=== PATIENT | male | born 1990 | race Caucasian/White ===

== ENCOUNTER 2017-01-23 10:07 | Emergency (ER) | payer SELFPAY ==
[2017-01-23] MEDS ORDERED: Amoxicillin/Potassium Clav 875 MG TAB ONE (10:46)
[2017-01-23] MEDS ORDERED: predniSONE 20 MG TAB ONE (10:46)
[2017-01-23] MEDS ORDERED: Ibuprofen 800 MG TAB ONE (10:46)
== END 2017-01-23 11:15 | disposition home or self-care (01) ==
LOC: MADERS 10:07
DX: J20.9 Acute bronchitis, unspecified (principal)
CPT/HCPCS: 99283; J7506; J7620

== ENCOUNTER 2018-09-12 09:10 | Emergency (ER) | payer SELFPAY ==
[2018-09-12 09:29] LABS: Bilirubin Negative (Negative); Blood, Urine Negative (Negative); Clarity Clear (Clear); Glucose, Urine (Dipstick) Negative (Negative); Leukocyte Negative (Negative); Nitrite Negative (Negative); Protein, Urine (Dipstick) Negative (Neg-Trace); Urobilinogen 0.2 mg/dL (0.2-1.0)
[2018-09-12 09:30] LABS: Specific Gravity, Urine 1.002 (1.002-1.036)
[2018-09-12 09:46] LABS: #Basophils 0.1 thou/uL (0.0-0.2); #Eosinphils 0.2 thou/uL (0.0-0.7); #Monocytes 0.4 thou/uL (0.11-0.59); #Neutrophils 4.5 thou/uL (1.40-6.50); %Basophils 1.1 % (0.0-1.0); %Eosinophils 2.6 % (0.0-10.0); %Lymphocytes 27.6 % (21.0-51.0); %Neutrophils 62.7 % (42.0-75.0); Hemoglobin 16.6 g/dL (14.0-18.0); Mean Corpuscular HGB CONC 33.8 g/dL (32.0-36.0); Mean Corpuscular Hemoglobin 28.6 pg (27.0-31.0); Mean Corpuscular Volume 84.7 fL (78.0-98.0); Mean Platelet Volume 8.6 fL (7.4-10.4); Platelet Count 350 thou/uL (130-400); RBC Distribution Width 11.6 % (11.5-14.5); Red Blood Cell (RBC) Count 5.81 mill/uL (4.70-6.10); White Blood Cell (WBC) Count 7.2 thou/uL (4.8-10.8)
[2018-09-12 10:01] LABS: ALT (SGPT) 71 U/L (8-55); AST (SGOT) 95 U/L (5-34); Alkaline Phosphatase 76 U/L (40-150); Anion Gap 15 mmol/L (10-20); BUN (Urea Nitrogen) 16 mg/dL (8.9-20.6); Bilirubin, Total 0.7 mg/dL (0.2-1.2); Calc. Creatinine Clearance 0 mL/min (70-130); Calcium 10.6 mg/dL (7.8-10.44); Carbon Dioxide 27 mmol/L (22-29); Chloride 103 mmol/L (98-107); Estimated GFR-MDRD 90; Globulin 3.4 g/dL (2.4-3.5); Glucose 88 mg/dL (70-105); Lipase 44 U/L (8-78); Potassium 4.8 mmol/L (3.5-5.1); Protein, Total 8.4 g/dL (6.0-8.3); Sodium 140 mmol/L (136-145)
--- NOTE | 2018-09-12 10:24 | CT ---
CT ABDOMEN AND PELVIS WITHOUT IV CONTRAST: Date: 09/12/18 Multiple axial tomograms obtained through the abdomen and pelvis without IV enhancement. INDICATION: Abdominal pain. FINDINGS: Lung bases appear clear. Liver, spleen, and pancreas appear unremarkable for an unenhanced exam. Adrenal glands appear normal. Kidneys unremarkable. No hydronephrosis or urinary tract calculus ident ified. Urinary bladder unremarkable. Small bowel loops normal caliber. The appendix is not identified. Colon is mostly nondistended and ap pears unremarkable. No adenopathy. IMPRESSION: No evidence of acute process identified. POS: H
== END 2018-09-12 10:59 | disposition home or self-care (01) ==
LOC: MADERS 09:10
DX: R10.9 Unspecified abdominal pain (principal); E78.2 Mixed hyperlipidemia; I10 Essential (primary) hypertension; Z87.891 Personal history of nicotine dependence
CPT/HCPCS: 36415; 74176; 80053; 81003; 83690; 85025

== ENCOUNTER 2018-12-04 12:10 | Emergency (ER) | payer SELFPAY ==
[2018-12-04] MEDS ORDERED: Dexamethasone 10 MG/ML VIAL ONE (13:01)
[2018-12-04] MEDS ORDERED: Bicillin LA 1.2 MILLION UNITS/2 ML SYRINGE ONE (13:01)
== END 2018-12-04 13:20 | disposition home or self-care (01) ==
LOC: MADERS 12:10
DX: J02.0 Streptococcal pharyngitis (principal); E78.2 Mixed hyperlipidemia; I10 Essential (primary) hypertension; Z87.891 Personal history of nicotine dependence
CPT/HCPCS: 96372; J0561; J1100

== ENCOUNTER 2019-08-22 15:13 | Emergency (ER) | payer OTHER, SELFPAY ==
--- NOTE | 2019-08-22 15:51 | RAD ---
Right wrist 4 views HISTORY: Wrist injury. FINDINGS: Scaphoid waist and ulnar styloid are intact. Joint spaces preserved. No acute fracture or d islocation. No radiopaque foreign bodies evident. IMPRESSION: No acute osseous abnormalities are demonstrated.
== END 2019-08-22 16:06 | disposition home or self-care (01) ==
LOC: MADERS 15:13
DX: S63.501A Unspecified sprain of right wrist, initial encounter (principal); E78.5 Hyperlipidemia, unspecified; E78.2 Mixed hyperlipidemia; W23.0XXA Caught, crushed, jammed, or pinched between moving objects, initial encounter

== ENCOUNTER 2019-10-19 19:09 | Emergency (ER) | payer SELFPAY ==
[2019-10-19] MEDS ORDERED: Morphine 4 MG/ML VIAL ONE (19:45)
[2019-10-19 20:26] LABS: Bilirubin Negative (Negative); Blood, Urine Negative (Negative); Clarity Clear (Clear); Glucose, Urine (Dipstick) Negative (Negative); Leukocyte Negative (Negative); Nitrite Negative (Negative); Protein, Urine (Dipstick) Negative (Neg-Trace); Urobilinogen 0.2 mg/dL (Less than 2)
== END 2019-10-19 20:28 | disposition short-term general hospital (02) ==
LOC: MADERS 19:09
DX: N50.811 Right testicular pain (principal); E78.5 Hyperlipidemia, unspecified; E78.00 Pure hypercholesterolemia, unspecified; E78.1 Pure hyperglyceridemia; Z87.891 Personal history of nicotine dependence
CPT/HCPCS: 81003; 96372; 99284; J2270

== ENCOUNTER 2020-12-14 16:04 | Emergency (ER) | payer SELFPAY ==
[~2020-12-14 16:04] MED LIST: Sodium Chloride 0.9% 1,000 ML BAG ONE
[2020-12-14 16:33] LABS: #Basophils 0.1 thou/uL (0.0-0.2); #Eosinphils 0.2 thou/uL (0.0-0.7); #Lymphocytes 2.2 thou/uL (1.20-3.40); #Monocytes 0.7 thou/uL (0.11-0.59); #Neutrophils 9.2 thou/uL (1.40-6.50); %Basophils 0.9 % (0.0-1.0); %Eosinophils 1.4 % (0.0-10.0); %Lymphocytes 17.9 % (21.0-51.0); %Monocytes 5.6 % (0.0-10.0); %Neutrophils 74.1 % (42.0-75.0); Hemoglobin 16.6 g/dL (14.0-18.0); Mean Corpuscular HGB CONC 33.2 g/dL (32.0-36.0); Mean Corpuscular Hemoglobin 28.3 pg (27.0-31.0); Mean Corpuscular Volume 85.4 fL (78.0-98.0); Mean Platelet Volume 7.8 fL (7.4-10.4); Platelet Count 314 thou/uL (130-400); RBC Distribution Width 11.5 % (11.5-14.5); Red Blood Cell (RBC) Count 5.88 mill/uL (4.70-6.10); White Blood Cell (WBC) Count 12.4 thou/uL (4.8-10.8)
[2020-12-14] MEDS ORDERED: Ondansetron PF 4 MG/2 ML Vial ONE (16:35)
[2020-12-14] MEDS ORDERED: Lorazepam 2 MG/ML VIAL ONE (16:39)
[2020-12-14 16:43] LABS: INR-International Normal Ratio 0.9; PTT 28.6 sec (22.9-36.1); Prothrombin Time 12.5 sec (12.0-14.7)
[2020-12-14 16:54] LABS: ALT (SGPT) 15 U/L (8-55); AST (SGOT) 11 U/L (5-34); Albumin 4.8 g/dL (3.5-5.0); Alkaline Phosphatase 71 U/L (40-110); Anion Gap 20 mmol/L (10-20); BUN (Urea Nitrogen) 6 mg/dL (8.9-20.6); Bilirubin, Total 1.2 mg/dL (0.2-1.2); CK (CPK) 47 U/L (30-200); Calc. Creatinine Clearance 0 mL/min (70-130); Calcium 9.9 mg/dL (7.8-10.44); Carbon Dioxide 26 mmol/L (22-29); Chloride 99 mmol/L (98-107); Globulin 3.6 g/dL (2.4-3.5); Glucose 113 mg/dL (70-105); Potassium 3.8 mmol/L (3.5-5.1); Protein, Total 8.4 g/dL (6.0-8.3); Sodium 141 mmol/L (136-145)
[2020-12-14] MEDS ORDERED: Sodium Chloride 0.9% 100 ML ONE (16:54)
[2020-12-14] MEDS ORDERED: cefTRIAXone\\ROCEPHIN 1 GM VIAL ONE (16:54)
== END 2020-12-14 17:15 | disposition short-term general hospital (02) ==
LOC: MADERS 16:04
DX: J95.830 Postprocedural hemorrhage of a respiratory system organ or structure following a respiratory system procedure (principal); R00.0 Tachycardia, unspecified; E78.5 Hyperlipidemia, unspecified; E78.00 Pure hypercholesterolemia, unspecified; E78.1 Pure hyperglyceridemia; Z87.891 Personal history of nicotine dependence
CPT/HCPCS: 80053; 82550; 85025; 85610; 85730; 86850; 86900; 86901; 94760; 96365; 96375; J0696; J2060; J2405; J3490; J7050

== ENCOUNTER 2021-08-08 18:21 | Emergency (ER) | payer SELFPAY ==
[2021-08-08] MEDS ORDERED: Boostrix 0.5 ML (Tdap) VIAL ONE (19:05)
== END 2021-08-08 19:20 | disposition home or self-care (01) ==
LOC: MADERS 18:21
DX: S61.011A Laceration without foreign body of right thumb without damage to nail, initial encounter (principal); Z23 Encounter for immunization; E78.5 Hyperlipidemia, unspecified; E78.00 Pure hypercholesterolemia, unspecified; E78.1 Pure hyperglyceridemia; Z87.891 Personal history of nicotine dependence; W26.8XXA Contact with other sharp object(s), not elsewhere classified, initial encounter
CPT/HCPCS: 12001; 90471; 90715

== ENCOUNTER 2021-10-22 23:37 | Emergency (ER) | payer BC ==
[2021-10-22] MEDS ORDERED: Iopamidol 370 76% 100 ML VIAL IV ONE (23:38)
[2021-10-22 23:59] LABS: #Basophils 0.1 thou/uL (0.0-0.2); #Eosinphils 0.2 thou/uL (0.0-0.7); #Lymphocytes 3.7 thou/uL (1.20-3.40); #Monocytes 0.6 thou/uL (0.11-0.59); #Neutrophils 2.9 thou/uL (1.40-6.50); %Basophils 1.2 % (0.0-1.0); %Eosinophils 2.9 % (0.0-10.0); %Lymphocytes 49.4 % (21.0-51.0); %Monocytes 7.4 % (0.0-10.0); %Neutrophils 39.1 % (42.0-75.0); Hemoglobin 16.6 g/dL (14.0-18.0); Mean Corpuscular HGB CONC 31.8 g/dL (32.0-36.0); Mean Corpuscular Hemoglobin 27.9 pg (27.0-31.0); Mean Corpuscular Volume 87.5 fL (78.0-98.0); Mean Platelet Volume 8.3 fL (7.4-10.4); Platelet Count 337 thou/uL (130-400); RBC Distribution Width 12.2 % (11.5-14.5); Red Blood Cell (RBC) Count 5.98 mill/uL (4.70-6.10); White Blood Cell (WBC) Count 7.4 thou/uL (4.8-10.8)
[2021-10-23 00:23] LABS: ALT (SGPT) 20 U/L (8-55); AST (SGOT) 20 U/L (5-34); Albumin 4.9 g/dL (3.5-5.0); Alkaline Phosphatase 71 U/L (40-110); Anion Gap 15 mmol/L (10-20); BUN (Urea Nitrogen) 8 mg/dL (8.9-20.6); Bilirubin, Total 0.5 mg/dL (0.2-1.2); Calc. Creatinine Clearance 0 mL/min (70-130); Calcium 10.2 mg/dL (7.8-10.44); Carbon Dioxide 29 mmol/L (22-29); Chloride 102 mmol/L (98-107); Globulin 3.1 g/dL (2.4-3.5); Glucose 91 mg/dL (70-105); Potassium 4.7 mmol/L (3.5-5.1); Sodium 141 mmol/L (136-145)
[2021-10-23 00:39] LABS: Bilirubin Negative (Negative); Blood, Urine Negative (Negative); Clarity Clear (Clear); Glucose, Urine (Dipstick) Negative (Negative); Ketone, Urine Negative (Negative); Leukocyte Negative (Negative); Nitrite Negative (Negative); Protein, Urine (Dipstick) Negative (Neg-Trace); Urobilinogen 0.2 mg/dL (Less than 2)
== END 2021-10-23 02:18 | disposition home or self-care (01) ==
LOC: MADERS 23:37
DX: K56.7 Ileus, unspecified (principal); E78.5 Hyperlipidemia, unspecified; E78.00 Pure hypercholesterolemia, unspecified; Z87.891 Personal history of nicotine dependence
CPT/HCPCS: 36415; 74177; 80053; 81003; 85025; Q9967

== ENCOUNTER 2021-11-22 22:46 | Emergency (ER) | payer BC ==
[2021-11-22 23:52] LABS: #Basophils 0.1 thou/uL (0.0-0.2); #Eosinphils 0.2 thou/uL (0.0-0.7); #Lymphocytes 2.8 thou/uL (1.20-3.40); #Monocytes 0.5 thou/uL (0.11-0.59); #Neutrophils 3.8 thou/uL (1.40-6.50); %Basophils 1.4 % (0.0-1.0); %Eosinophils 2.7 % (0.0-10.0); %Lymphocytes 38.1 % (21.0-51.0); %Monocytes 7.2 % (0.0-10.0); %Neutrophils 50.6 % (42.0-75.0); Mean Corpuscular HGB CONC 32.8 g/dL (32.0-36.0); Mean Corpuscular Hemoglobin 28.3 pg (27.0-31.0); Mean Corpuscular Volume 86.4 fL (78.0-98.0); Mean Platelet Volume 7.5 fL (7.4-10.4); Platelet Count 338 thou/uL (130-400); RBC Distribution Width 11.8 % (11.5-14.5); Red Blood Cell (RBC) Count 5.66 mill/uL (4.70-6.10); White Blood Cell (WBC) Count 7.4 thou/uL (4.8-10.8)
[2021-11-23 00:11] LABS: ALT (SGPT) 20 U/L (8-55); AST (SGOT) 18 U/L (5-34); Albumin 4.7 g/dL (3.5-5.0); Alkaline Phosphatase 58 U/L (40-110); Anion Gap 15 mmol/L (10-20); BUN (Urea Nitrogen) 19 mg/dL (8.9-20.6); Bilirubin, Total 0.5 mg/dL (0.2-1.2); Calc. Creatinine Clearance 0 mL/min (70-130); Calcium 10.2 mg/dL (7.8-10.44); Carbon Dioxide 26 mmol/L (22-29); Chloride 103 mmol/L (98-107); Globulin 2.9 g/dL (2.4-3.5); Glucose 97 mg/dL (70-105); Potassium 3.5 mmol/L (3.5-5.1); Protein, Total 7.6 g/dL (6.0-8.3); Sodium 140 mmol/L (136-145)
== END 2021-11-23 00:32 | disposition home or self-care (01) ==
LOC: MADERS 22:46
DX: K59.00 Constipation, unspecified (principal); K62.5 Hemorrhage of anus and rectum; E78.5 Hyperlipidemia, unspecified; E78.00 Pure hypercholesterolemia, unspecified; Z87.891 Personal history of nicotine dependence
CPT/HCPCS: 80053; 85025; 99283

== ENCOUNTER 2022-01-15 11:32 | Outpatient (CLI) | payer BC | END 2022-01-15 11:33 | disposition home or self-care (01) | LOC: MADLAB 11:32 → MADRAD 11:33 | PROVIDERS: ATTEND Physician Assistant | DX: R07.89 Other chest pain (principal); R05.9 Cough, unspecified | CPT/HCPCS: 71046 ==

== ENCOUNTER 2022-06-22 14:06 | Emergency (ER) | payer BC ==
[2022-06-22] MEDS ORDERED: Aspirin Chewable 81 MG TAB ONE (14:53)
[2022-06-22] MEDS ORDERED: Mag-Al Plus 1200 MG/1200 MG/120 MG/30 ML UDCUP ONE (14:53)
[2022-06-22] MEDS ORDERED: Nitroglycerin 2% Ointment 1 INCH/1 GM Packet ONE (14:53)
[2022-06-22] MEDS ORDERED: Lidocaine Viscous Sol 2% 15 ml UD Cup ONE (14:53)
[2022-06-22 14:56] LABS: #Basophils 0.1 thou/uL (0.0-0.2); #Eosinphils 0.1 thou/uL (0.0-0.7); #Lymphocytes 1.8 thou/uL (1.20-3.40); #Monocytes 0.4 thou/uL (0.11-0.59); #Neutrophils 4.6 thou/uL (1.40-6.50); %Eosinophils 1.5 % (0.0-10.0); %Lymphocytes 25.6 % (21.0-51.0); %Monocytes 6.1 % (0.0-10.0); %Neutrophils 65.9 % (42.0-75.0); Hemoglobin 15.7 g/dL (14.0-18.0); Mean Corpuscular HGB CONC 32.1 g/dL (32.0-36.0); Mean Corpuscular Hemoglobin 27.9 pg (27.0-31.0); Mean Corpuscular Volume 86.8 fL (78.0-98.0); Mean Platelet Volume 9.3 fL (7.4-10.4); Platelet Count 303 thou/uL (130-400); RBC Distribution Width 12.3 % (11.5-14.5); Red Blood Cell (RBC) Count 5.61 mill/uL (4.70-6.10); White Blood Cell (WBC) Count 6.9 thou/uL (4.8-10.8)
[2022-06-22 14:58] LABS: Bilirubin Negative (Negative); Blood, Urine Negative (Negative); Clarity Clear (Clear); Glucose, Urine (Dipstick) Negative (Negative); Ketone, Urine Negative (Negative); Leukocyte Negative (Negative); Nitrite Negative (Negative); Protein, Urine (Dipstick) Negative (Neg-Trace); Urobilinogen 0.2 mg/dL (Less than 2)
[2022-06-22 14:59] LABS: Specific Gravity, Urine 1.005 (1.002-1.036)
[2022-06-22 15:04] LABS: ALT (SGPT) 24 U/L (8-55); AST (SGOT) 17 U/L (5-34); Albumin 4.8 g/dL (3.5-5.0); Alkaline Phosphatase 56 U/L (40-110); Anion Gap 16 mmol/L (10-20); BUN (Urea Nitrogen) 14 mg/dL (8.9-20.6); CK (CPK) 156 U/L (30-200); Calc. Creatinine Clearance 0 mL/min (70-130); Calcium 9.5 mg/dL (7.8-10.44); Carbon Dioxide 25 mmol/L (22-29); Chloride 102 mmol/L (98-107); Estimated GFR 117; Globulin 2.5 g/dL (2.4-3.5); Glucose 95 mg/dL (70-105); Lipase 53 U/L (8-78); Potassium 3.9 mmol/L (3.5-5.1); Protein, Total 7.3 g/dL (6.0-8.3); Sodium 139 mmol/L (136-145)
[2022-06-22 15:51] LABS: SARS-CoV-2 NAA Rapid Test Not Detected (NotDetected)
== END 2022-06-22 15:56 | disposition home or self-care (01) ==
LOC: MADERS 14:06
DX: R07.89 Other chest pain (principal); R53.83 Other fatigue; M79.10 Myalgia, unspecified site; E78.2 Mixed hyperlipidemia; Z20.822 Contact with and (suspected) exposure to COVID-19; Z87.891 Personal history of nicotine dependence
CPT/HCPCS: 71045; 80053; 81003; 82550; 83690; 84484; 85025; 93005; 94760; U0002

== ENCOUNTER 2023-08-27 20:03 | Emergency (ER) | payer BC ==
[~2023-08-27 20:03] MED LIST changes: -Sodium Chloride 0.9% 1,000 ML BAG ONE; +Sodium Chloride 0.9% 100 ML BAG ONE
[2023-08-27] MEDS ORDERED: Bupivacaine PF 0.5% 30 ML VIAL ONE (20:17)
[2023-08-27] MEDS ORDERED: CEFAZOLIN 1 GM VIAL ONE (20:27)
[2023-08-27] MEDS ORDERED: Bacitracin 1 PK ONE (23:08)
[2023-08-27] MEDS ORDERED: HYDROcodone/Acetaminophen 10/325 mg Tablet ONE (23:58)
== END 2023-08-28 00:13 | disposition home or self-care (01) ==
LOC: MADERS 20:03
DX: S62.633B Displaced fracture of distal phalanx of left middle finger, initial encounter for open fracture (principal); S62.631B Displaced fracture of distal phalanx of left index finger, initial encounter for open fracture; E78.2 Mixed hyperlipidemia; Z87.891 Personal history of nicotine dependence; W27.0XXA Contact with workbench tool, initial encounter
CPT/HCPCS: J0690; J3490; S0020

== ENCOUNTER 2023-08-29 18:25 | Emergency (ER) | payer BC | END 2023-08-29 18:45 | disposition home or self-care (01) | LOC: MADERS 18:25 | DX: S61.313D Laceration without foreign body of left middle finger with damage to nail, subsequent encounter (principal); E78.2 Mixed hyperlipidemia; Z87.891 Personal history of nicotine dependence; X58.XXXD Exposure to other specified factors, subsequent encounter | CPT/HCPCS: 99282 ==

== ENCOUNTER 2023-09-07 20:53 | Emergency (ER) | payer BC ==
[~2023-09-07 20:53] MED LIST changes: -Sodium Chloride 0.9% 100 ML BAG ONE; +Sodium Chloride 0.9% 500 ML BAG ONE
[2023-09-07 21:22] LABS: #Basophils 0.2 thou/uL (0.0-0.2); #Eosinphils 0.2 thou/uL (0.0-0.7); #Lymphocytes 3.3 thou/uL (1.20-3.40); #Monocytes 0.5 thou/uL (0.11-0.59); #Neutrophils 2.9 thou/uL (1.40-6.50); %Basophils 2.2 % (0.0-1.0); %Eosinophils 2.8 % (0.0-10.0); %Lymphocytes 47.2 % (21.0-51.0); %Monocytes 6.5 % (0.0-10.0); %Neutrophils 41.3 % (42.0-75.0); Hematocrit 46.3 % (42.0-52.0); Hemoglobin 15.2 g/dL (14.0-18.0); Mean Corpuscular HGB CONC 32.9 g/dL (32.0-36.0); Mean Corpuscular Hemoglobin 28.7 pg (27.0-31.0); Mean Corpuscular Volume 87.4 fl (78.0-98.0); Mean Platelet Volume 8.3 fL (7.4-10.4); Platelet Count 305 10x3/uL (130-400); RBC Distribution Width 12.1 % (11.5-14.5)
[2023-09-07 21:37] LABS: Acetaminophen Less than 10 mcg/mL (10.0-30.0); Alcohol Less than 10.0 mg/dL (Less than 10); Magnesium 1.8 mg/dL (1.6-2.6); Salicylate Less than 8.0 mg/dL (15.0-30.0)
[2023-09-07 21:39] LABS: ALT (SGPT) 28 U/L (8-55); AST (SGOT) 21 U/L (5-34); Albumin 4.6 g/dL (3.5-5.0); Alkaline Phosphatase 46 U/L (40-110); Anion Gap 17 mmol/L (10-20); BUN (Urea Nitrogen) 12 mg/dL (8.9-20.6); Bilirubin, Total 0.3 mg/dL (0.2-1.2); Calc. Creatinine Clearance 0 mL/min (70-130); Calcium 9.8 mg/dL (7.8-10.44); Carbon Dioxide 24 mmol/L (22-29); Chloride 103 mmol/L (98-107); Estimated GFR 104; Globulin 2.7 g/dL (2.4-3.5); Glucose 118 mg/dL (70-105); Protein, Total 7.3 g/dL (6.0-8.3); Sodium 140 mmol/L (136-145)
[2023-09-07 21:41] LABS: Troponin I Less than 0.010 ng/mL (< 0.028)
[2023-09-07 22:07] LABS: Amphetamine Not Detected (NotDetected); Barbiturates Screen Not Detected (NotDetected); Benzodiazepine Screen Not Detected (NotDetected); Cocaine Metabolite Screen Not Detected (NotDetected); Methadone Not Detected (NotDetected); Methamphetamine Not Detected (NotDetected); Opiate Screen Not Detected (NotDetected); Oxycodone Screen Not Detected (NotDetected); Phencyclidine (PCP) Not Detected (NotDetected); THC/Cannabinoid Screen Not Detected (NotDetected); Tricyclic Screen Not Detected (NotDetected)
[2023-09-08 00:19] LABS: Troponin I Less than 0.010 ng/mL (< 0.028)
== END 2023-09-08 00:40 | disposition home or self-care (01) ==
LOC: MADERS 20:53
DX: F41.0 Panic disorder [episodic paroxysmal anxiety] (principal); Z87.891 Personal history of nicotine dependence; Z79.899 Other long term (current) drug therapy
CPT/HCPCS: 71045; 80053; 80306; 80307; 82550; 83735; 83880; 84484; 85025; 93005; J7030

== ENCOUNTER 2024-08-05 11:49 | Outpatient (CLI) | payer BC | END 2024-08-05 11:50 | disposition home or self-care (01) | LOC: MADRAD 11:49 | PROVIDERS: ATTEND Family Medicine | DX: U07.1 COVID-19 (principal) | CPT/HCPCS: 71046 ==

== ENCOUNTER 2024-10-09 20:09 | Emergency (ER) | payer BC ==
[2024-10-09] MEDS ORDERED: Ondansetron ODT 4 MG TAB ONE (20:22)
[2024-10-09 20:30] LABS: #Basophils 0.1 thou/uL (0.0-0.2); #Eosinophils 0.3 thou/uL (0.0-0.7); #Lymphocytes 3.1 thou/uL (1.20-3.40); #Monocytes 0.4 thou/uL (0.11-0.59); #Neutrophils 2.7 thou/uL (1.40-6.50); %Basophils 1.9 % (0.0-1.0); %Eosinophils 3.9 % (0.0-10.0); %Monocytes 6.5 % (0.0-10.0); %Neutrophils 40.7 % (42.0-75.0); Hematocrit 46.3 % (42.0-52.0); Hemoglobin 15.3 g/dL (14.0-18.0); Mean Corpuscular HGB CONC 33.1 g/dL (32.0-36.0); Mean Corpuscular Hemoglobin 28.9 pg (27.0-31.0); Mean Corpuscular Volume 87.2 fl (78.0-98.0); Mean Platelet Volume 9.2 fL (7.4-10.4); Platelet Count 289 10x3/uL (130-400); RBC Distribution Width 12.3 % (11.5-14.5); Red Blood Cell (RBC) Count 5.31 mill/uL (4.70-6.10); White Blood Cell (WBC) Count 6.5 10x3/uL (4.8-10.8)
[2024-10-09 20:46] LABS: ALT (SGPT) 37 U/L (8-55); AST (SGOT) 25 U/L (5-34); Albumin 4.4 g/dL (3.5-5.0); Alkaline Phosphatase 49 U/L (40-110); Anion Gap 17 mmol/L (10-20); BUN (Urea Nitrogen) 17 mg/dL (8.9-20.6); Bilirubin, Total 0.3 mg/dL (0.2-1.2); Calc. Creatinine Clearance 0 mL/min (70-130); Calcium 9.4 mg/dL (7.8-10.44); Carbon Dioxide 24 mmol/L (22-29); Chloride 105 mmol/L (98-107); Estimated GFR 107; Globulin 3.1 g/dL (2.4-3.5); Glucose 100 mg/dL (70-105); Potassium 3.9 mmol/L (3.5-5.1); Protein, Total 7.5 g/dL (6.0-8.3); Sodium 142 mmol/L (136-145)
[2024-10-09 20:48] LABS: Troponin I Less than 0.010 ng/mL (< 0.028)
== END 2024-10-09 21:05 | disposition home or self-care (01) ==
LOC: MADERS 20:09
DX: R07.9 Chest pain, unspecified (principal); R42 Dizziness and giddiness; Z71.1 Person with feared health complaint in whom no diagnosis is made; Z87.891 Personal history of nicotine dependence
CPT/HCPCS: 36416; 80053; 84484; 85025; 93005; 99284; 36415-59; Q0162

== ENCOUNTER 2025-08-13 11:00 | Emergency (ER) | payer BC, SELFPAY ==
[2025-08-13 11:45] LABS: #Basophils 0.1 thou/uL (0.0-0.2); #Eosinophils 0.1 thou/uL (0.0-0.7); #Lymphocytes 1.6 thou/uL (1.20-3.40); #Monocytes 0.4 thou/uL (0.11-0.59); #Neutrophils 4.2 thou/uL (1.40-6.50); %Basophils 1.6 % (0.0-1.0); %Eosinophils 1.5 % (0.0-10.0); %Lymphocytes 25.1 % (21.0-51.0); %Monocytes 6.7 % (0.0-10.0); %Neutrophils 65.2 % (42.0-75.0); Hematocrit 49.2 % (42.0-52.0); Hemoglobin 15.9 g/dL (14.0-18.0); Mean Corpuscular Hemoglobin 27.7 pg (27.0-31.0); Mean Corpuscular Volume 85.9 fl (78.0-98.0); Platelet Count 324 10x3/uL (130-400); Red Blood Cell (RBC) Count 5.74 mill/uL (4.70-6.10); White Blood Cell (WBC) Count 6.4 10x3/uL (4.8-10.8)
[2025-08-13 12:01] LABS: ALT (SGPT) 19 U/L (Less than 45); AST (SGOT) 18 U/L (11-34); Albumin 4.9 g/dL (3.1-4.5); Alkaline Phosphatase 53 U/L (40-110); Anion Gap 18 mmol/L (10-20); BUN (Urea Nitrogen) 9 mg/dL (8.9-20.6); Bilirubin, Total 0.4 mg/dL (0.3-1.2); Calc. Creatinine Clearance 0 mL/min (70-130); Calcium 9.9 mg/dL (7.8-10.44); Carbon Dioxide 23 mmol/L (22-29); Chloride 104 mmol/L (98-107); Globulin 2.6 g/dL (2.4-3.5); Glucose 90 mg/dL (70-105); Potassium 4.2 mmol/L (3.5-5.1); Sodium 141 mmol/L (136-145)
[2025-08-13 12:04] LABS: Troponin I Less than 0.010 ng/mL (< 0.028)
[2025-08-13 12:36] LABS: Glucose, Urine (Dipstick) Negative (Negative); Leukocyte Negative (Negative); Protein, Urine (Dipstick) Negative (Neg-Trace); Specific Gravity, Urine 1.010 (1.005-1.030)
[2025-08-13 12:44] LABS: CAUTI Indications for Culture Dysuria,urgency,freq; RBC/HPF None Seen HPF (0-3); WBC/HPF None Seen HPF (0-3)
[2025-08-13 12:45] LABS: Bacteria/HPF None Seen HPF (None Seen)
[2025-08-13 12:46] LABS: Urine Culture Reflex No No
[2025-08-13 14:52] LABS: Troponin I Less than 0.010 ng/mL (< 0.028)
== END 2025-08-13 15:19 | disposition home or self-care (01) ==
LOC: MADERS 11:00
DX: R07.89 Other chest pain (principal); F41.9 Anxiety disorder, unspecified; R55 Syncope and collapse; Z87.891 Personal history of nicotine dependence
CPT/HCPCS: 71045; 80053; 81001; 84484; 85025; 93005; 94760

== ENCOUNTER 2025-09-26 17:37 | Emergency (ER) | payer SELFPAY ==
[2025-09-26] MEDS ORDERED: Cephalexin 500 MG CAP ONE (18:14)
[2025-09-26] MEDS ORDERED: Sulfameth/Trimethoprim DS 800-160mg TAB ONE (18:15)
== END 2025-09-26 18:30 | disposition home or self-care (01) ==
LOC: MADERS 17:37
DX: L03.012 Cellulitis of left finger (principal); L02.512 Cutaneous abscess of left hand; Z87.891 Personal history of nicotine dependence
CPT/HCPCS: 10060; 87070; 87077; 87186; 87205

== ENCOUNTER 2025-10-02 10:57 | Emergency (ER) | payer SELFPAY ==
[~2025-10-02 10:57] MED LIST changes: +Iopamidol 370 76% 100 ML VIAL ONE; -Sodium Chloride 0.9% 500 ML BAG ONE
[2025-10-02 11:30] LABS: Glucose, Urine (Dipstick) Negative (Negative); Leukocyte Negative (Negative); Protein, Urine (Dipstick) Negative (Neg-Trace); Specific Gravity, Urine Less/Equal 1.005 (1.005-1.030)
[2025-10-02 11:37] LABS: Bacteria/HPF Rare-Few HPF (None Seen); CAUTI Indications for Culture Pelvic or flank pain; RBC/HPF 0-3 HPF (0-3); Urine Culture Reflex No No; WBC/HPF None Seen HPF (0-3)
[2025-10-02 11:45] LABS: #Basophils 0.1 thou/uL (0.0-0.2); #Eosinophils 0.0 thou/uL (0.0-0.7); #Lymphocytes 1.4 thou/uL (1.20-3.40); #Monocytes 0.2 thou/uL (0.11-0.59); #Neutrophils 5.9 thou/uL (1.40-6.50); %Basophils 0.9 % (0.0-1.0); %Eosinophils 0.4 % (0.0-10.0); %Lymphocytes 18.7 % (21.0-51.0); %Monocytes 2.7 % (0.0-10.0); %Neutrophils 77.3 % (42.0-75.0); Hematocrit 50.8 % (42.0-52.0); Hemoglobin 16.1 g/dL (14.0-18.0); Mean Corpuscular Hemoglobin 27.8 pg (27.0-31.0); Mean Corpuscular Volume 87.7 fl (78.0-98.0); Platelet Count 320 10x3/uL (130-400); Red Blood Cell (RBC) Count 5.79 mill/uL (4.70-6.10); White Blood Cell (WBC) Count 7.6 10x3/uL (4.8-10.8)
[2025-10-02] MEDS ORDERED: Ondansetron PF 4 MG/2 ML Vial ONE (11:46)
[2025-10-02] MEDS ORDERED: Ketorolac Tromethamine 30 MG (1 mL) VIAL ONE (11:46)
[2025-10-02 12:01] LABS: ALT (SGPT) 17 U/L (Less than 45); AST (SGOT) 20 U/L (11-34); Albumin 5.1 g/dL (3.1-4.5); Alkaline Phosphatase 53 U/L (40-110); Anion Gap 16 mmol/L (10-20); BUN (Urea Nitrogen) 11 mg/dL (8.9-20.6); Bilirubin, Total 0.7 mg/dL (0.3-1.2); Calc. Creatinine Clearance 0 mL/min (70-130); Calcium 9.7 mg/dL (7.8-10.44); Carbon Dioxide 25 mmol/L (22-29); Chloride 103 mmol/L (98-107); Globulin 3.0 g/dL (2.4-3.5); Glucose 95 mg/dL (70-105); Lipase 33 U/L (8-78); Potassium 3.7 mmol/L (3.5-5.1); Sodium 140 mmol/L (136-145)
== END 2025-10-02 14:35 | disposition home or self-care (01) ==
LOC: MADERS 10:57
DX: R10.84 Generalized abdominal pain (principal); R11.0 Nausea; I10 Essential (primary) hypertension; Z87.891 Personal history of nicotine dependence
CPT/HCPCS: 74177; 80053; 81001; 83605; 83690; 85025; 87428; 96374; 96375; J1885; J2405; J7030; Q9967